=== PATIENT | female | born 1995 | race African-American/Black ===

== ENCOUNTER 2020-12-07 12:11 | Emergency (ER) | payer OTHER ==
[~2020-12-07] VITALS: Ht 152.4 cm; Wt 68.0 kg
[2020-12-07 12:29] VITALS: BP 117/74
[2020-12-07] MEDS ORDERED: ACETAMINOPHEN 325MG TABLET PO ONE (14:30)
== END 2020-12-07 15:58 | disposition home or self-care (01) ==
LOC: ER 12:11
DX: S93.491A Sprain of other ligament of right ankle, initial encounter (principal); S99.821A Other specified injuries of right foot, initial encounter; X50.1XXA Overexertion from prolonged static or awkward postures, initial encounter; Y93.89 Activity, other specified; Y92.9 Unspecified place or not applicable
CPT/HCPCS: 29515; 73610; 73630; 99284

== ENCOUNTER 2022-12-03 18:56 | Emergency (ER) | payer MEDICAID, OTHER ==
[~2022-12-03] VITALS: Ht 160 cm; Wt 74.1 kg
[2022-12-03 19:40] VITALS: O2SAT 100
[2022-12-03] MEDS ORDERED: ONDANSETRON HCL 4MG/2ML INJ IV ONE (19:45)
[2022-12-03] MEDS ORDERED: SODIUM CHLORIDE 0.9% 1,000 ML IV ONE (19:45)
[2022-12-03] MEDS ORDERED: ONDANSETRON HCL 4MG/2ML INJ IV NR (19:45)
[2022-12-03] MEDS ORDERED: MAGNESIUM/ALUMINUM HYDROXIDE/SIMETHICONE 30ML UDC PO ONE (19:45)
[2022-12-03] MEDS ORDERED: MAGNESIUM/ALUMINUM HYDROXIDE/SIMETHICONE 30ML UDC PO NR (19:45)
[2022-12-03 20:34] LABS: BASOPHILS % 0.5 % (0.0-2.0); EOSINOPHILS % 0.7 % (0.0-5.0); HEMATOCRIT. 39.3 % (36.0-48.0); HEMOGLOBIN. 13.2 g/dL (12.0-16.0); LYMPHOCYTES % 20.6 % (20.0-50.0); MEAN CORPUSCULAR HEMOGLOBIN 29.5 pg (28.0-32.0); MEAN CORPUSCULAR HGB CONC 33.5 g/dL (31.0-37.0); MEAN CORPUSCULAR VOLUME 88.2 fL (81.0-99.0); MEAN PLATELET VOLUME 9.3 fl (7.4-10.4); MONOCYTES % 7.6 % (2.0-8.0); NEUTROPHILS % 70.6 % (40.0-76.0); PLATELET 241 x1000/uL (130-400); RED BLOOD CELL COUNT 4.46 mill/uL (4.2-5.4); RED CELL DISTRIBUTION WIDTH 14.8 % (11.6-14.6); WHITE BLOOD COUNT 10.5 x1000/uL (4.5-11.0)
[2022-12-03 20:37] LABS: CHLORIDE 105 mEq/L (98-107); INDEX HEMOLYSI 1 (1-3); INDEX ICTERIC 1 (1-4); INDEX LIPEMIC 1 (1-3); POTASSIUM 3.5 mEq/L (3.5-5.1); SODIUM 135 mEq/L (136-145)
[2022-12-03 20:47] LABS: HCG SCREEN POSITIVE
[2022-12-03 21:00] LABS: ALANINE AMINOTRANSFERASE 16 IU/L (13-61); ALBUMIN 4.1 g/dL (3.4-5.0); ASPARTATE AMINOTRANSFERASE 14 IU/L (15-37); B-HCG QUANTITATIVE 72723 mIU/mL (<3); BILIRUBIN TOTAL 0.9 mg/dL (0.1-1.0); CALCIUM 9.4 mg/dL (8.5-10.1); CARBON DIOXIDE 25 mEq/L (21-32); CREATININE 0.7 mg/dL (0.6-1.3); GLUCOSE 93 mg/dL (70-105); PROTEIN TOTAL 8.7 g/dL (6.0-8.3); UREA NITROGEN BLOOD 11 mg/dL (7-21)
[2022-12-04] MEDS ORDERED: MAG355OR21 MT (00:14)
[2022-12-04] MEDS ORDERED: METO-293 MT (00:14)
[2022-12-04 00:40] VITALS: BP 119/67; PULSE 60; RESP 15; TEMP 98.6
== END 2022-12-04 01:10 | disposition home or self-care (01) ==
LOC: ER 18:56
DX: O99.611 Diseases of the digestive system complicating pregnancy, first trimester (principal); K29.70 Gastritis, unspecified, without bleeding; Z3A.08 8 weeks gestation of pregnancy
CPT/HCPCS: 80053; 81025; 84703; 84702; 83690; 85025; 86850; 86900; 86901; 36415; 76801; 76817; 96361; 96374; 99285; J2405; J7030; Z7610 ×2

== ENCOUNTER 2024-10-24 03:17 | Emergency (ER) | payer MEDICAID, OTHER ==
[~2024-10-24] VITALS: Ht 152.4 cm; Wt 91.0 kg
[~2024-10-24 03:17] MED LIST: MAG355OR21 MT; METO-293 MT
[2024-10-24 03:48] VITALS: TEMP 37; O2SAT 100
[2024-10-24] MEDS ORDERED: FAMO-135 MT (06:29)
[2024-10-24] MEDS ORDERED: EPIN0.3P3 IM (06:29)
[2024-10-24 06:42] VITALS: BP 126/79; PULSE 65; RESP 18; O2SAT 100
== END 2024-10-24 06:43 | disposition home or self-care (01) ==
LOC: ER 03:17
DX: T78.40XA Allergy, unspecified, initial encounter (principal); L50.9 Urticaria, unspecified; Z79.899 Other long term (current) drug therapy; X58.XXXA Exposure to other specified factors, initial encounter; Y93.89 Activity, other specified; Y92.89 Other specified places as the place of occurrence of the external cause; Y99.8 Other external cause status
CPT/HCPCS: 99283